=== PATIENT | female | born 1980 | race American Indian/Alaskan Native ===

== ENCOUNTER 2020-10-01 23:59 | Observation (INO) | payer MEDICAID, OTHER ==
[2020-10-02 02:07] LABS: Eosinophils # (Auto) 0.2 K/mm3 (0.0-0.4); Eosinophils % (Auto) 4.2 % (0.0-4.3); Hematocrit 37.6 % (30.3-42.9); Hemoglobin 12.6 gm/dl (10.1-14.3); Lymphocytes # (Auto) 2.2 K/mm3 (1.2-5.4); Mean Corpuscular HGB Conc 34 % (30-34); Mean Corpuscular Volume 97 fl (79-97); Monocytes # (Auto) 0.3 K/mm3 (0.0-0.8); Monocytes % (Auto) 7.2 % (0.0-7.3); Platelet Count 222 K/mm3 (140-440); Red Blood Count 3.86 M/mm3 (3.65-5.03); Red Cell Distribution Width 14.6 % (13.2-15.2)
[2020-10-02 02:22] LABS: BUN/Creatinine Ratio 3; Blood Urea Nitrogen 2 mg/dL (7-17); Calcium 9.2 mg/dL (8.4-10.2); Hemolysis Index 3
--- NOTE | 2020-10-02 04:28 | Emergency Department Report ---
ED GI Bleed HPI - General Chief complaint: GI Bleed Stated complaint: BLOODY STOOL/EARACHE Time Seen by Provider: 10/02/20 04:15 Source: patient Mode of arrival: Ambulatory Limitations: No Limitations - History of Present Illness Initial comments: Patient is a 40-year-old female that presents emergency room with complaints of bright red blood per rectum and lower abdominal pain. Patient states her lower abdominal pain is intermittent. Patient states she has had GI bleed for 3 weeks but it became acutely worse today. Patient states she had multiple bouts of bloody stool. Patient denies diarrhea. Patient denies nausea vomiting. Patient states her abdominal pain is a 2 out of 10. Patient states that lower abdominal cramping. Patient states she has history of IBS. Patient denies fever and chills. Patient denies recent travel. Patient denies recent international travel. Patient denies exposure to the novel coronavirus. Patient denies sick contacts. Patient denies fever and chills. Patient denies cough. Patient denies diarrhea. Patient denies coming in contact with anybody with symptoms of the novel coronavirus. complaint: gross hematochezia -: Gradual, Sudden Location: LLQ, RLQ Radiation: none Severity scale (0 -10): 2 Quality: cramping Consistency: intermittent Improves with: rest Worsens with: movement Associated Symptoms: abdominal pain. denies: nausea, vomiting, epistaxis, fever/chills, headaches, loss of appetite, easy bruising, other bleeding, shortness of breath, syncope, weakness Treatments Prior to Arrival: none - Related Data Allergies Allergy/AdvReac Type Severity Reaction Status Date / Time No Known Allergies Allergy Verified 10/02/20 05:47 ED Review of Systems ROS: Stated complaint: BLOODY STOOL/EARACHE Other details as noted in HPI Constitutional: denies: chills, fever Eyes: denies: eye pain, eye discharge, vision change ENT: denies: ear pain, throat pain Respiratory: denies: cough, shortness of breath, wheezing Cardiovascular: denies: chest pain, palpitations Endocrine: no symptoms reported Gastrointestinal: abdominal pain, hematochezia. denies: nausea, diarrhea Genitourinary: denies: urgency, dysuria, discharge Musculoskeletal: denies: back pain, joint swelling, arthralgia Skin: denies: rash, lesions Neurological: denies: headache, weakness, paresthesias Psychiatric: denies: anxiety, depression Hematological/Lymphatic: denies: easy bleeding, easy bruising ED Past Medical Hx - Past Medical History Previous Medical History?: Yes Hx GERD: Yes Additional medical history: pyelonephritis. SBO 2006. IBS - Surgical History Past Surgical History?: Yes Additional Surgical History: "cut 3 inches of small bowel for obstruction"-2006 - Family History Family history: no significant - Social History Smoking Status: Former Smoker Substance Use Type: None ED Physical Exam - General Limitations: No Limitations General appearance: alert, in no apparent distress - Head Head exam: Present: atraumatic, normocephalic - Eye Eye exam: Present: normal appearance - ENT ENT exam: Present: mucous membranes moist - Neck Neck exam: Present: normal inspection - Respiratory Respiratory exam: Present: normal lung sounds bilaterally. Absent: respiratory distress - Cardiovascular Cardiovascular Exam: Present: regular rate, normal rhythm. Absent: systolic murmur, diastolic murmur, rubs, gallop - GI/Abdominal GI/Abdominal exam: Present: soft, normal bowel sounds - Rectal Rectal exam: Present: heme (+) stool, other (Nurse Rosalia in room at all times during exam.) - Extremities Exam Extremities exam: Present: normal inspection - Back Exam Back exam: Present: normal inspection - Neurological Exam Neurological exam: Present: alert, oriented X3 - Psychiatric Psychiatric exam: Present: normal affect, normal mood - Skin Skin exam: Present: warm, dry, intact, normal color. Absent: rash ED Course Vital Signs 10/02/20 10/02/20 10/02/20 01:27 04:15 04:32 Temperature 98.0 F Pulse Rate 76 Respiratory 18 Rate Blood Pressure 136/99 121/84 O2 Sat by Pulse 98 99 100 Oximetry 10/02/20 05:00 Temperature Pulse Rate Respiratory Rate Blood Pressure 122/85 O2 Sat by Pulse 99 Oximetry - Reevaluation(s) Reevaluation #1: I discussed all results with patient. I discussed plan of care with patient. Patient agrees with plan of care and admission. Patient to be admitted to the hospitalist service. 10/02/20 05:53 - Consultations Consultation #1: Hospitalist consulted for admission. Hospitalist to admit patient. 10/02/20 05:54 ED Medical Decision Making - Lab Data Result diagrams: 10/02/20 01:41 10/02/20 01:41 - Radiology Data Radiology results: report reviewed CT ABDOMEN AND PELVIS WITH IV CONTRAST INDICATION: abd pain. gi bleed. COMPARISON: None available. TECHNIQUE: All CT scans at this facility use dose modulation, automated exposure control, iterative reconstruction or weight based dosing, when appropriate, to reduce radiation dose to as low as reasonably achievable. FINDINGS: Lung Bases: No significant abnormality. Skeletal System: No acute abnormality. ABDOMEN: Liver: No significant abnormality. Gallbladder: No significant abnormality. Bile Ducts: No significant abnormality. Pancreas: No significant abnormality. Spleen: No significant abnormality. Adrenals: No significant abnormality. Right Kidney: There are couple calyceal stones. The larger in the lower pole measures 6 mm. Left Kidney: There is a 6 mm nonobstructing calyceal stone. Upper GI tract: No significant abnormality. Lymph Nodes: No significant adenopathy. Aorta: No significant abnormality. Additional Findings: Distal small bowel anastomosis is noted. PELVIS: Colon: No acute abnormality. Urinary Bladder and Distal Ureters: No significant abnormality. Appendix: No significant abnormality. Lymph Nodes: No significant adenopathy. Additional Findings: There is trace free fluid in the cul-de-sac. This may be physiologic. IMPRESSION: 1. No acute process in the abdomen or pelvis. 2. Incidental findings, as above. - Medical Decision Making Patient is a 40-year-old female that presents emergency room with complaints of lower abdominal pain and bright red blood per rectum. Patient bright red blood is becoming more frequent. It is guaiac positive. Patient had labs done. Patient's labs are essentially unremarkable. Patient then had a CT scan of the abdomen which was negative for acute findings. Patient admitted to the hospitalist service for further evaluation treatment. Patient will also need to see GI. GI consult placed. - Differential Diagnosis Abdominal pain, GI bleed, bright red blood per rectum, IBS, Critical Care Time: Yes Critical care time in (mins) excluding proc time.: 35 Critical care attestation.: If time is entered above; I have spent that time in minutes in the direct care of this critically ill patient, excluding procedure time. Critical Care Time: 35 minutes ED Disposition Clinical Impression: BRBPR (bright red blood per rectum) Abdominal pain Qualifiers: Abdominal location: lower abdomen, unspecified Qualified Code(s): R10.30 - Lower abdominal pain, unspecified Disposition: DC-09 OP ADMIT IP TO THIS HOSP Is pt being admited?: Yes Does the pt Need Aspirin: No Condition: Critical Time of Disposition: 05:52
[2020-10-02] MEDS ORDERED: ACETAMINOPHEN 325 MG TAB PO PRN (05:37)
[2020-10-02] MEDS ORDERED: ONDANSETRON 4 MG/2 ML INJ IV PRN (05:37)
[2020-10-02] MEDS ORDERED: MORPHINE 2 MG/1 ML INJ IV PRN (05:37)
[2020-10-02] MEDS ORDERED: SODIUM CHLORIDE 0.9% 1000 ML 1,000 ML IV SCH (05:45)
--- NOTE | 2020-10-02 05:47 | Cat Scan Report ---
CT ABDOMEN AND PELVIS WITH IV CONTRAST INDICATION: abd pain. gi bleed. COMPARISON: None available. TECHNIQUE: All CT scans at this facility use dose modulation, automated exposure control, iterative reconstructi on or weight based dosing, when appropriate, to reduce radiation dose to as low as reasonably achieva ble. FINDINGS: Lung Bases: No significant abnormality. Skeletal System: No acute abnormality. ABDOMEN: Liver: No significant abnormality. Gallbladder: No significant abnormality. Bile Ducts: No significant abnormality. Pancreas: No significant abnormality. Spleen: No significant abnormality. Adrenals: No significant abnormality. Right Kidney: There are couple calyceal stones. The larger in the lower pole measures 6 mm. Left Kidney: There is a 6 mm nonobstructing calyceal stone. Upper GI tract: No significant abnormality. Lymph Nodes: No significant adenopathy. Aorta: No significant abnormality. Additional Findings: Distal small bowel anastomosis is noted. PELVIS: Colon: No acute abnormality. Urinary Bladder and Distal Ureters: No significant abnormality. Appendix: No significant abnormality. Lymph Nodes: No significant adenopathy. Additional Findings: There is trace free fluid in the cul-de-sac. This may be physiologic. IMPRESSION: 1. No acute process in the abdomen or pelvis. 2. Incidental findings, as above. Signer Name: Sven Alegria MD Signed: 10/02/2020 5:42 AM Workstation Name: [id number]
--- NOTE | 2020-10-02 05:54 | History and Physical Report ---
History of Present Illness Date of examination: 10/02/20 Date of admission: 10/02/2020 Chief complaint: Rectal Bleeding History of present illness: 40-year-old -[place] female with known history of GERD and IBS presenting to the emergency room today complaining of bright red blood per rectum with Dr. Associated abdominal pain. Abdominal pain is said to be intermittent and more in the lower abdomen. Symptoms has been ongoing for about 3 weeks but got worse overnight. Abdominal pain is crampy. No known relieving or exacerbating factor. Patient denies intake of any nonsteroidal anti-inflammatory medication. She denies any fever or chills, no nausea vomiting, no diarrhea or constipation. Denies any hematuria or dysuria. Patient indicates that she had an EGD in August 2020 and a colonoscopy in 2015 both of which were unremarkable. She follows up with a actuarial science teacher Dr. Servando Roberson at [facility]. Work-up in the emergency room today including labs and CT scan of the abdomen and pelvis were unremarkable. Patient being admitted for work-up of lower GI bleed. Past History Past Medical History: GERD, other (H/O SBO, IBS, H/O pyelonephritis in the past.) Past Surgical History: Other (Colonoscopy 2016- normal , EGD in 08/2020, ) Social history: smoking (Former Smoker) Family history: no significant family history Medications and Allergies Allergies Allergy/AdvReac Type Severity Reaction Status Date / Time No Known Allergies Allergy Verified 10/02/20 05:47 Active Meds: Active Medications Acetaminophen (Tylenol) 650 mg PO Q4H PRN PRN Reason: Pain MILD(1-3)/Fever >100.5/HUMMEL Sodium Chloride (Nacl 0.9% 1000 Ml) 1,000 mls @ 125 mls/hr IV DIRECT NA Morphine Sulfate (Morphine) 2 mg IV Q4H PRN PRN Reason: Pain, Moderate (4-6) Ondansetron HCl (Zofran) 4 mg IV Q8H PRN PRN Reason: Nausea And Vomiting Sodium Chloride (Sodium Chloride Flush Syringe 10 Ml) 10 ml IV BID NA Sodium Chloride (Sodium Chloride Flush Syringe 10 Ml) 10 ml IV PRN PRN PRN Reason: LINE FLUSH Review of Systems Constitutional: no fever, no chills Ears, nose, mouth and throat: no nasal congestion, no sore throat Cardiovascular: no chest pain, no palpitations Respiratory: no cough, no shortness of breath Gastrointestinal: abdominal pain, BRBPR, no nausea, no vomiting, no diarrhea, no hematemesis, no coffee ground emesis Genitourinary Female: no pelvic pain, no flank pain, no dysuria Musculoskeletal: no neck pain, no low back pain Integumentary: no rash, no pruritis Neurological: no headaches, no confusion Psychiatric: no anxiety, no depression Exam - Constitutional Vitals: Temp Pulse Resp BP Pulse Ox 98.0 F 76 18 122/85 99 10/02/20 01:27 10/02/20 01:27 10/02/20 01:27 10/02/20 05:00 10/02/20 05:00 General appearance: Present: no acute distress, well-nourished - EENT Eyes: Present: PERRL, EOM intact. Absent: scleral icterus ENT: hearing intact, clear oral mucosa, dentition normal - Neck Neck: Present: supple, normal ROM - Respiratory Respiratory effort: normal Respiratory: bilateral: CTA - Cardiovascular Rhythm: regular Heart Sounds: Present: S1 & S2. Absent: systolic murmur, diastolic murmur - Extremities Extremities: no ischemia, pulses intact, pulses symmetrical, No edema, Full ROM Peripheral Pulses: within normal limits - Abdominal General gastrointestinal: Present: soft, non-tender, non-distended, normal bowel sounds. Absent: mass - Integumentary Integumentary: Present: clear, warm, dry. Absent: rash - Musculoskeletal Musculoskeletal: strength equal bilaterally - Psychiatric Psychiatric: appropriate mood/affect, intact judgment & insight, memory intact, cooperative - Neurologic Neurologic: CNII-XII intact, no focal deficits, moves all extremities Results - Labs CBC & Chem 7: 10/02/20 01:41 10/02/20 01:41 Labs: Abnormal lab results 10/02/20 10/02/20 Range/Units 01:41 01:41 WBC 4.4 L (4.5-11.0) K/mm3 MCH 33 H (28-32) pg Lymph % (Auto) 50.0 H (13.4-35.0) % Seg Neutrophils % 37.6 L (40.0-70.0) % Seg Neutrophils # 1.7 L (1.8-7.7) K/mm3 Potassium 3.3 L (3.6-5.0) mmol/L BUN 2 L (7-17) mg/dL Glucose 108 H (65-100) mg/dL Assessment and Plan - Patient Problems (1) GI bleed Current Visit: Yes Status: Acute Plan to address problem: Etiology is unclear. Patient has known history of GERD and IBS. We will place a consult to gastroenterology for evaluation and recommendation. Meanwhile patient made n.p.o. (2) Abdominal pain Current Visit: Yes Status: Acute Plan to address problem: We will place patient on analgesic medication as needed. Currently abdominal pain is subsided. We will also placed on proton pump inhibitor for GERD. (3) DVT prophylaxis Current Visit: Yes Status: Acute Plan to address problem: Patient placed on sequential compression device. (4) Full code status Current Visit: Yes Status: Acute
[2020-10-02] MEDS ORDERED: PANTOPRAZOLE 40 MG INJ IV SCH (10:00)
--- NOTE | 2020-10-02 10:19 | Gastroenterology Consultation ---
History of Present Illness - Reason for Consult Consult date: 10/02/20 hematochezia Requesting physician: JENNY COREY - History of Present Illness The patient is a 40 yo female who presents with multiple hematochezia episodes. Pt reports constipation for the past few months, took stool softeners/laxatives (senna, metamucil) in the past week to help with bm's. Developed mutliple episodes of hematochezia yesterday (3-4 episodes) with bright blood in camode a nd on toilet paper. No further episodes overnight or today so far. Denies prior h/o bleeding. Mild lower abd discomfort which has improved. Denies prior h/o gi bleeding. CT scan w/o acute findings and normal H/H on admission. Past History Past Medical History: GERD, other (H/O SBO, IBS, H/O pyelonephritis in the past.) Past Surgical History: Other (Colonoscopy 2016- normal , EGD in 08/2020, ) Social history: smoking (Former Smoker) Family history: no significant family history Medications and Allergies Allergies Allergy/AdvReac Type Severity Reaction Status Date / Time No Known Allergies Allergy Verified 10/02/20 05:47 Active Meds: Active Medications Acetaminophen (Tylenol) 650 mg PO Q4H PRN PRN Reason: Pain MILD(1-3)/Fever >100.5/HUMMEL Sodium Chloride (Nacl 0.9% 1000 Ml) 1,000 mls @ 125 mls/hr IV DIRECT [facility] Last Admin: 10/02/20 09:38 Dose: 125 mls/hr Documented by: Morphine Sulfate (Morphine) 2 mg IV Q4H PRN PRN Reason: Pain, Moderate (4-6) Ondansetron HCl (Zofran) 4 mg IV Q8H PRN PRN Reason: Nausea And Vomiting Pantoprazole Sodium (Protonix) 40 mg IV BID [facility] Last Admin: 10/02/20 09:37 Dose: 40 mg Documented by: Sodium Chloride (Sodium Chloride Flush Syringe 10 Ml) 10 ml IV BID [facility] Last Admin: 10/02/20 09:37 Dose: 10 ml Documented by: Sodium Chloride (Sodium Chloride Flush Syringe 10 Ml) 10 ml IV PRN PRN PRN Reason: LINE FLUSH Reviewed/updated patient's home and current medications. Review of Systems - Review of Systems All systems: negative (per HPI) Exam - Constitutional Vital Signs: Temp Pulse Resp BP Pulse Ox 98.0 F 62 18 114/73 100 10/02/20 08:50 10/02/20 08:50 10/02/20 08:50 10/02/20 08:50 10/02/20 08:50 General appearance: no acute distress - EENT Eyes: PERRL, EOM intact - Neck Neck: supple - Respiratory Respiratory effort: normal Respiratory: bilateral: CTA - Cardiovascular Rhythm: regular Heart Sounds: Present: S1 & S2 - Gastrointestinal General gastrointestinal: Present: soft, non-tender, non-distended - Integumentary Integumentary: Present: clear, warm - Neurologic Neurological: alert and oriented x3 - Psychiatric Psychiatric: appropriate mood/affect - Labs CBC & Chem 7: 10/02/20 01:41 10/02/20 01:41 Lab Results: Laboratory Results - last 24 hr 10/02/20 10/02/20 10/02/20 01:41 01:41 04:50 WBC 4.4 L RBC 3.86 Hgb 12.6 Hct 37.6 MCV 97 MCH 33 H MCHC 34 RDW 14.6 Plt Count 222 Lymph % (Auto) 50.0 H [place] % (Auto) 7.2 Eos % (Auto) 4.2 Baso % (Auto) 1.0 Lymph # (Auto) 2.2 [place] # (Auto) 0.3 Eos # (Auto) 0.2 Baso # (Auto) 0.0 Seg Neutrophils % 37.6 L Seg Neutrophils # 1.7 L Sodium 140 Potassium 3.3 L Chloride 104.5 Carbon Dioxide 26 Anion Gap 13 BUN 2 L Creatinine 0.8 Estimated GFR > 60 BUN/Creatinine Ratio 3 Glucose 108 H Calcium 9.2 HCG, Qual Negative - Imaging CT Scan: report reviewed Assessment and Plan 1. Hematochezia - no further episodes since admission; sx's suggestive of outlet/ano-rectal source in setting of constipation. CT w/o acute findings. okay to resume diet from gi stand point and can be discharged later today if no change in symptoms or further bleeding. Discussed with pt regarding outpatient follow-up in 2 weeks in GI clinic for outpatient colonoscopy.
--- NOTE | 2020-10-02 11:30 | Progress Note ---
Assessment and Plan Assessment and plan: Hematochezia/BRBPR. Patient has noted no further episodes since admission. Symptoms suggestive of outlet/anorectal etiology in setting of constipation. CT w/o acute findings. okay to resume diet from gi stand point and can be discharged later today if no change in symptoms or further bleeding. GI d iscussed with pt regarding outpatient follow-up in 2 weeks in GI clinic for outpatient colonoscopy. History Interval history: No new issues overnight Hospitalist Physical - Constitutional Vitals: Temp Pulse Resp BP Pulse Ox 98.0 F 62 18 114/73 100 10/02/20 08:50 10/02/20 08:50 10/02/20 08:50 10/02/20 08:50 10/02/20 08:50 General appearance: Present: no acute distress, well-nourished - EENT Eyes: Present: PERRL, EOM intact ENT: hearing intact, clear oral mucosa, dentition normal - Neck Neck: Present: supple, normal ROM - Respiratory Respiratory effort: normal Respiratory: bilateral: CTA - Cardiovascular Rhythm: regular Heart Sounds: Present: S1 & S2. Absent: gallop, rub - Extremities Extremities: no ischemia, No edema, Full ROM - Abdominal General gastrointestinal: soft, non-tender, non-distended, normal bowel sounds - Integumentary Integumentary: Present: clear, warm, dry - Neurologic Neurologic: CNII-XII intact, moves all extremities Results - Labs CBC & Chem 7: 10/02/20 01:41 10/02/20 01:41 Labs: Laboratory Last Values WBC 4.4 K/mm3 (4.5-11.0) L 10/02/20 01:41 RBC 3.86 M/mm3 (3.65-5.03) 10/02/20 01:41 Hgb 12.6 gm/dl (10.1-14.3) 10/02/20 01:41 Hct 37.6 % (30.3-42.9) 10/02/20 01:41 MCV 97 fl (79-97) 10/02/20 01:41 MCH 33 pg (28-32) H 10/02/20 01:41 MCHC 34 % (30-34) 10/02/20 01:41 RDW 14.6 % (13.2-15.2) 10/02/20 01:41 Plt Count 222 K/mm3 (140-440) 10/02/20 01:41 Lymph % (Auto) 50.0 % (13.4-35.0) H 10/02/20 01:41 [place] % (Auto) 7.2 % (0.0-7.3) 10/02/20 01:41 Eos % (Auto) 4.2 % (0.0-4.3) 10/02/20 01:41 Baso % (Auto) 1.0 % (0.0-1.8) 10/02/20 01:41 Lymph # (Auto) 2.2 K/mm3 (1.2-5.4) 10/02/20 01:41 [place] # (Auto) 0.3 K/mm3 (0.0-0.8) 10/02/20 01:41 Eos # (Auto) 0.2 K/mm3 (0.0-0.4) 10/02/20 01:41 Baso # (Auto) 0.0 K/mm3 (0.0-0.1) 10/02/20 01:41 Seg Neutrophils % 37.6 % (40.0-70.0) L 10/02/20 01:41 Seg Neutrophils # 1.7 K/mm3 (1.8-7.7) L 10/02/20 01:41 Sodium 140 mmol/L (137-145) 10/02/20 01:41 Potassium 3.3 mmol/L (3.6-5.0) L 10/02/20 01:41 Chloride 104.5 mmol/L (98-107) 10/02/20 01:41 Carbon Dioxide 26 mmol/L (22-30) 10/02/20 01:41 Anion Gap 13 mmol/L 10/02/20 01:41 BUN 2 mg/dL (7-17) L 10/02/20 01:41 Creatinine 0.8 mg/dL (0.6-1.2) 10/02/20 01:41 Estimated GFR > 60 ml/min 10/02/20 01:41 BUN/Creatinine Ratio 3 % 10/02/20 01:41 Glucose 108 mg/dL (65-100) H 10/02/20 01:41 Calcium 9.2 mg/dL (8.4-10.2) 10/02/20 01:41 HCG, Qual Negative (Negative) 10/02/20 04:50 Khan/IV: Voiding Method Toilet IV Catheter Type [Left Forearm Peripheral IV ] Active Medications - Current Medications Current Medications: Generic Name Dose Route Start Last Admin Trade Name Freq PRN Reason Stop Dose Admin Acetaminophen 650 mg 10/02/20 05:37 Tylenol PO Q4H PRN Pain MILD(1-3)/Fever >100.5/HUMMEL Sodium Chloride 1,000 mls @ 125 mls/hr 10/02/20 05:45 10/02/20 09:38 Nacl 0.9% 1000 Ml IV 125 mls/hr DIRECT NA Administration Morphine Sulfate 2 mg 10/02/20 05:37 Morphine IV Q4H PRN Pain, Moderate (4-6) Ondansetron HCl 4 mg 10/02/20 05:37 Zofran IV Q8H PRN Nausea And Vomiting Pantoprazole Sodium 40 mg 10/02/20 10:00 10/02/20 09:37 Protonix IV 40 mg BID NA Administration Sodium Chloride 10 ml 10/02/20 10:00 10/02/20 09:37 Sodium Chloride Flush Syringe 10 Ml IV 10 ml BID NA Administration Sodium Chloride 10 ml 10/02/20 05:37 Sodium Chloride Flush Syringe 10 Ml IV PRN PRN LINE FLUSH
--- NOTE | 2020-10-02 11:31 | Short Stay Summary ---
Short Stay Documentation Date of service: 10/02/20 Narrative H&P: The patient is a 40 yo female who presents with multiple hematochezia episodes. Pt reports constipation for the past few months, took stool softeners/laxatives (senna, metamucil) in the past week to help with bm's. Developed mutliple episodes of hematochezia yesterday (3-4 episodes) with bright blood in camode and on toilet paper. No further episodes overnight or today so far. Denies prior h/o bleeding. Mild lower abd discomfort which has improved. Denies prior h/o gi bleeding. CT scan w/o acute findings and normal H/H on admission. - History Principal diagnosis: Hematochezia/GI bleed Past Medical History: GERD, other (H/O SBO, IBS, H/O pyelonephritis in the past.) Past Surgical History: Other (Colonoscopy 2015- normal , EGD in 08/2020, ) Social history: smoking (Former Smoker) - Allergies and Medications Current Medications: Allergies No Known Allergies Allergy (Verified 10/02/20 05:47) Active Medications Acetaminophen (Tylenol) 650 mg PO Q4H PRN PRN Reason: Pain MILD(1-3)/Fever >100.5/HUMMEL Sodium Chloride (Nacl 0.9% 1000 Ml) 1,000 mls @ 125 mls/hr IV DIRECT [facility] Last Admin: 10/02/20 09:38 Dose: 125 mls/hr Documented by: Morphine Sulfate (Morphine) 2 mg IV Q4H PRN PRN Reason: Pain, Moderate (4-6) Ondansetron HCl (Zofran) 4 mg IV Q8H PRN PRN Reason: Nausea And Vomiting Pantoprazole Sodium (Protonix) 40 mg IV BID [facility] Last Admin: 10/02/20 09:37 Dose: 40 mg Documented by: Sodium Chloride (Sodium Chloride Flush Syringe 10 Ml) 10 ml IV BID [facility] Last Admin: 10/02/20 09:37 Dose: 10 ml Documented by: Sodium Chloride (Sodium Chloride Flush Syringe 10 Ml) 10 ml IV PRN PRN PRN Reason: LINE FLUSH - Physical exam Extremities: no ischemia, No edema, Full ROM - Hospital course Hospital course: The patient was admitted with diagnosis of Hematochezia/BRBPR. Patient has noted no further episodes since admission. Symptoms suggestive of outlet/anorectal etiology in setting of constipation. CT w/o acute findings. GI saw the patient in consultation and stated it was okay to resume diet from gi stand point and can be discharged later today if no change in symptoms or further bleeding. GI discussed with pt regarding outpatient follow-up in 2 weeks in GI clinic for outpatient colonoscopy. If CBC stable, we will d/c/ Dedicated d/c time 35 min - Disposition Condition at discharge: Critical Disposition: DC-01 TO HOME OR SELFCARE - Discharge Diagnoses (1) Hematochezia Status: Acute (2) Abdominal pain Status: Acute (3) BRBPR (bright red blood per rectum) Status: Acute Short Stay Discharge Plan Follow up with: JESÚS ANDERSON MD [Primary Care Provider] - 7 Days
[2020-10-02 12:08] VITALS: BP 112/78
== END 2020-10-02 14:03 | disposition home or self-care (01) ==
LOC: ED 23:59 → 4A 10-02 05:37
PROVIDERS: ADMIT Internal Medicine Geriatric Medicine; ATTEND Hospitalist
DX: K92.2 Gastrointestinal hemorrhage, unspecified (principal); K21.9 Gastro-esophageal reflux disease without esophagitis; K56.609 Unspecified intestinal obstruction, unspecified as to partial versus complete obstruction; N12 Tubulo-interstitial nephritis, not specified as acute or chronic; K92.1 Melena; Z87.891 Personal history of nicotine dependence; Z98.890 Other specified postprocedural states
CPT/HCPCS: 36415; 74177; 80048; 84703; 85025; 96361; 96374; 99291; 99406; C9113; G0378; J7030; Q9967

== ENCOUNTER 2022-05-20 11:59 | Emergency (ER) | payer SELFPAY ==
[2022-05-20 12:45] VITALS: BP 109/77
[2022-05-20 14:18] LABS: Basophils % (Auto) 1.3 % (0.0-1.8); Eosinophils # (Auto) 0.1 K/mm3 (0.0-0.4); Eosinophils % (Auto) 2.5 % (0.0-4.3); Hematocrit 40.1 % (30.3-42.9); Hemoglobin 13.5 gm/dl (10.1-14.3); Lymphocytes # (Auto) 1.2 K/mm3 (1.2-5.4); Lymphocytes % (Auto) 31.9 % (13.4-35.0); Mean Corpuscular HGB Conc 34 % (30-34); Mean Corpuscular Volume 94 fl (79-97); Monocytes # (Auto) 0.3 K/mm3 (0.0-0.8); Monocytes % (Auto) 6.7 % (0.0-7.3); Platelet Count 253 K/mm3 (140-440); Red Blood Count 4.28 M/mm3 (3.65-5.03); Red Cell Distribution Width 14.1 % (13.2-15.2)
[2022-05-20 14:21] LABS: Bilirubin,Urine NEG (Negative); Blood,Urine MOD (Negative); Color,Urine Yellow (Yellow); Protein,Urine <15 mg/dL mg/dL (Negative); Urobilinogen,Urine < 2.0 mg/dL (<2.0)
[2022-05-20 14:38] LABS: Alanine Aminotransferase 11 units/L (7-56); Albumin 4.4 g/dL (3.9-5); BUN/Creatinine Ratio 6; Blood Urea Nitrogen 5 mg/dL (7-17); Calcium 9.8 mg/dL (8.4-10.2); Hemolysis Index 3
[2022-05-20 14:39] LABS: Mucus,Urine FEW /HPF
== END 2022-05-21 | disposition left against medical advice (07) ==
LOC: ED 11:59
DX: E86.0 Dehydration (principal); R21 Rash and other nonspecific skin eruption; Z53.21 Procedure and treatment not carried out due to patient leaving prior to being seen by health care provider
CPT/HCPCS: 36415; 80053; 81001; 83690; 85025